=== PATIENT | female | born 1980 | race Caucasian/White ===

== ENCOUNTER → 2022-05-05 | Outpatient (CLI) | payer OTHER ==
--- NOTE | 2022-05-05 16:18 | US ---
EXAMINATION TYPE: US extremity nonvasculr ltd LT DATE OF EXAM: 05/05/2022 COMPARISON: NONE CLINICAL HISTORY: R22.9 SKIN MASS. Palpable area on the left buttocks x 2 weeks. Scanned patient's palpable area of concern/pain/redness. Complex area seen left buttocks measuring 1. 2 x 1.4 x 1.2 cm. Small phlegmon or infection may be present. A walled abscess is not evident. IMPRESSION: 1. Heterogenous hypoechoic collection of the palpable abnormality may be related to infection. No abs cess formation is evident. Follow-up is recommended
== END | disposition home or self-care (01) ==
LOC: RADUSWWP 14:36
PROVIDERS: ATTEND Family Medicine
DX: R22.9 Localized swelling, mass and lump, unspecified (principal)

== ENCOUNTER → 2023-06-20 | Outpatient (CLI) | payer OTHER ==
[2023-06-20 13:08] VITALS: BP 118/76; PULSE 91; TEMP 98; BMI 40.5
--- NOTE | 2023-06-20 14:00 | P.BASOAP ---
Subjective Progress Note Date: 06/20/23 Principal diagnosis: Morbid obesity Patient presents to the bariatric clinic today with complaints of dysphagia and vomiting. Patient had her lap band placed in 2010. She is unsure how much is there. She's been having frequent vomiting and dysphagia. Significant reflux symptoms as well. She has pain at the port site. Her port is in the right upper quadrant after previous replacement. No recent imaging. Objective - Vital Signs Vital signs: Vital Signs Temp 98 F 06/20/23 13:05 Pulse 91 06/20/23 13:05 Resp BP 118/76 06/20/23 13:05 Pulse Ox FiO2 Intake & Output 06/19/23 06/20/23 06/20/23 18:59 06:59 18:59 Weight 103.873 kg - Exam Physical exam: General: Well-developed, well-nourished HEENT: Normocephalic, sclerae nonicteric Abdomen: Nontender, nondistended Extremities: No edema Neuro: Alert and oriented Assessment/Plan (1) Dysphagia Narrative/Plan: 42-year-old female with dysphagia. Patient is interested in band removal. Patient having frequent vomiting pain and dysphagia. Will empty the band. Will schedule for laparoscopic band removal, possible open. The patient's lap band port was palpated. The site was aseptically prepped. The Ellison needle was advanced into the port. A total of 5 ml of fluid was removed. Pressure was held and a sterile dressing was applied. Plan: Date: 06/20/23 Initial Weight: Initial BMI: Current Weight: 103.873 kg Current BMI: 40.5 Type of Surgery: Total Volume in Band: Previous Volume: Volume Removed: Volume Added: Band Size:
== END ==
LOC: BARWHC3 12:54
PROVIDERS: ATTEND Surgery
DX: E66.01 Morbid (severe) obesity due to excess calories (principal); R13.10 Dysphagia, unspecified; Z68.41 Body mass index [BMI] 40.0-44.9, adult; Z46.51 Encounter for fitting and adjustment of gastric lap band
CPT/HCPCS: 99202

== ENCOUNTER → 2023-08-08 | Outpatient (CLI) | payer OTHER ==
[2023-08-08 14:49] VITALS: BP 125/84; PULSE 109; TEMP 98.1; BMI 41.6
--- NOTE | 2023-08-08 14:56 | P.BASOAP ---
Subjective Progress Note Date: 08/08/23 Principal diagnosis: Morbid obesity Patient returns after band removal. Doing well at this time. Mild soreness at the port removal site. Says eating is back to normal. No dysphagia. Objective - Vital Signs Vital signs: Vital Signs Temp 98.1 F 08/08/23 14:41 Pulse 109 H 08/08/23 14:41 Resp BP 125/84 08/08/23 14:41 Pulse Ox FiO2 Intake & Output 08/07/23 08/08/23 08/08/23 18:59 06:59 18:59 Weight 106.594 kg - Exam Abdomen: Soft, nondistended, mild incisional tenderness, incisions clean and dry Assessment/Plan Plan: Date: 08/08/23 patient doing well at this time. Gradually resume normal diet and activities. Monitor incision sites. Follow-up as needed.
== END ==
LOC: BARWHC3 14:33
PROVIDERS: ATTEND Surgery
DX: E66.01 Morbid (severe) obesity due to excess calories (principal); Z98.84 Bariatric surgery status; Z46.51 Encounter for fitting and adjustment of gastric lap band; Z68.41 Body mass index [BMI] 40.0-44.9, adult
CPT/HCPCS: 99211

== ENCOUNTER → 2023-12-11 | Outpatient (CLI) | payer OTHER ==
[2023-12-11 16:17] LABS: % Iron Saturation 38.19 (12.00-45.00); Chol/HDL Ratio 3.52 Ratio; Iron 110 UG/DL (50-170); LDL Cholesterol,Calculated 91.5 mg/dL (0.0-131.0); Total Iron Binding Capacity 288 UG/DL (228-460)
== END | disposition home or self-care (01) ==
LOC: LABWHC1 12:22
PROVIDERS: ATTEND Family Medicine
DX: E66.01 Morbid (severe) obesity due to excess calories (principal); E78.2 Mixed hyperlipidemia; E53.8 Deficiency of other specified B group vitamins; Z68.41 Body mass index [BMI] 40.0-44.9, adult
CPT/HCPCS: 36415; 80061; 82746; 83540; 83550

== ENCOUNTER → 2023-12-29 | Outpatient (CLI) | payer OTHER ==
--- NOTE | 2024-01-01 07:35 | MM ---
Reason for Exam: Screening (asymptomatic). Patient History: Menarche at age 14. First Full-Term at age 27. Premenopausal. Risk Values: Amarilys 5 year model risk: 0.7%. NCI Lifetime model risk: 10.9%. Tissue Density: The breast tissue is almost entirely fat. Findings: Analyzed By CAD. There is no suspicious group of microcalcifications or new suspicious mass. Overall Assessment: Negative, BI-RAD 1 Management: Screening Mammogram of both breasts in [address] [facility] will attempt to contact patient to return for supplemental views and ultrasound if indicated. Patient should continue monthly self-breast exams. A clinical breast exam by your physician is recommended on an annual basis. This exam should not preclude additional follow-up of suspicious palpable abnormalities. Note on Amarilys scores and lifetime risk: 1. A Amarilys score greater than 3% is considered moderate risk. If this is the case, consider specialist referral to assess eligibility for a risk reducing agent. 2. If overall lifetime risk for the development of breast cancer is 20% or higher, the patient may qualify for future screening with alternating mammogram and breast MRI. Electronically signed and approved by: Dano Tolbert DO
== END | disposition home or self-care (01) ==
LOC: RADMAMWWP 11:32
PROVIDERS: ATTEND Family Medicine
DX: Z12.31 Encounter for screening mammogram for malignant neoplasm of breast (principal)
CPT/HCPCS: 77063; 77067

== ENCOUNTER 2025-02-13 19:40 | Outpatient (CLI) | payer OTHER ==
--- NOTE | 2025-03-05 15:34 | P.PCN ---
Description of Procedure: POLYSOMNOGRAPHY REPORT PROCEDURE(S)/DATE(S): Polysomnography 02/13/2025 CLINICAL: Patient has been seen in the sleep center for evaluation of obstructive sleep apnea-hypopnea syndrome. Please see my consultation. Sleep study has been done for evaluation of patient breathing during the sleep. PROCEDURE: The standard montage for clinical polysomnography included the electroencephalogram, the electrooculogram, the mentalis surface electromyography and Lead II cardiography. The respiratory battery consisted of measurements of nasal/buccal air flow, pressure transducer measurements from nose, thoracic and/or abdominal effort and intercostal surface electromyography. Video monitoring has been done to check for any parasomnia events. Nocturnal oxyhemoglobin saturations were obtained by finger oximetry. Step-lujan titration with positive airway pressure was utilized to control the respiratory events, if necessary. RESULTS: During the diagnostic sleep study sleep efficiency was increased to 71.7%. Latency to sleep onset was prolonged to 109.0 min. Sleep architecture showed stage NI was normal 6.0%, Delta sleep was increased to 19.2%, REM sleep was short 15.8%. Respiratory channel showed 1 obstructive apneas, 0 mixed apneas, 0 central apneas, 70 hypopneas with lowest oxygen level 77%. Total apnea hypopnea index was 14.2. Heart rate was in the range between 78 and 88, average 83. EMG showed 4.2 periodic limb movements per hour with 0.2 micro-arousals per florentino r. IMPRESSIONS: 1. Obstructive sleep apnea hypopnea syndrome. 2. No significant periodic limb movements have been documented. Please see other impressions from consultation PLAN: 1. The patient will have AutoPAP treatment for correction of respiratory abnormalities during the sleep. 2. Losing weight program. 3. Sleep hygiene with regular time in bed for at least 7-1/2 hours. 4. No driving if feeling sleepiness. Thank you very much for allowing me to participate in the management of your patient. Sincerely, Oscar Carrasco MD, PhD, FAASM. Diplomat of [place] [employer], Sleep Medicine Board by [place] [employer] [facility]
== END 2025-02-14 05:43 | disposition home or self-care (01) ==
LOC: 3 N SLEEP 19:40
PROVIDERS: ATTEND Internal Medicine
DX: G47.33 Obstructive sleep apnea (adult) (pediatric) (principal)
CPT/HCPCS: 95810